=== PATIENT | male | born 1995 | race Caucasian/White ===

== ENCOUNTER 2017-12-24 15:56 | Emergency (ER) | payer OTHER ==
[~2017-12-24] VITALS: Ht 177.8 cm; Wt 65.8 kg
[~2017-12-24 15:56] MED LIST: ACETAMINOPHEN-1 EAC1 PO; BACTRIM DS TAB1 EACH PO; IBUPROFEN 800800 MG PO; LIDOCAINE VISC100 M1 MM; LIDOCAINE VISC100 M1 SWISH&SPIT; NAPROSYN500 MG PO; NOHOMEMEDICATIONS; PENICILLIN V P500 MG PO; ULTRAM 50MG TAB50 MG PO
[2017-12-24 16:46] LABS: HEMOGLOBIN 15.6 gm/dL (14.0-18.0); MCHC 33.9 g/dL (28.0-37.0); MCV 94.3 fL (80.0-100.0); MPV 8.5 fl. (7.2-11.1); RBC 4.88 mil/uL (4.50-6.00); RDW-CV 13.1 % (10.5-14.5); WBC 12.3 thou/uL (4.0-11.0)
[2017-12-24 16:55] LABS: CALCIUM 8.7 mg/dL (8.5-10.1); POTASSIUM 3.6 mmol/L (3.5-5.1)
[2017-12-24 17:00] LABS: TOTAL BILIRUBIN 0.6 mg/dL (<0.1-1.0); TOTAL PROTEIN 6.8 g/dL (6.4-8.2)
[2017-12-24 17:07] LABS: URINE BILIRUBIN NEGATIVE (Negative); URINE BLOOD NEGATIVE (Negative); URINE CLARITY CLEAR; URINE COLOR YELLOW; URINE GLUCOSE-RANDOM NEGATIVE (Negative); URINE KETONES NEGATIVE (Negative); URINE LEUKOCYTES NEGATIVE (Negative); URINE NITRITE NEGATIVE (Negative); URINE PROTEIN TRACE (Negative); URINE UROBILINOGEN 0.2 E.U./dl (0.2-1.0)
[2017-12-24 17:14] LABS: AMP/METHAMP POSITIVE (Negative); BARBITURATES Negative (Negative); BENZODIAZEPINES POSITIVE (Negative); COCAINE Negative (Negative); METHADONE Negative (Negative); OPIATES Negative (Negative); PCP Negative (Negative); THC POSITIVE (Negative)
[2017-12-24 17:14] LABS: ALCOHOL < 10 mg/dL (<10); SALICYLATE 3.3 mg/dL (2.8-20.0)
[2017-12-24 17:15] LABS: ACETAMINOPHEN < 2 ug/mL (10-30)
[2017-12-24 23:45] VITALS: BP 126/79
== END 2017-12-24 23:45 ==
LOC: M.ERS 15:56
PROVIDERS: Personal Emergency Response Attendant
DX: R45.851 Suicidal ideations (principal); F19.10 Other psychoactive substance abuse, uncomplicated; F32.9 Major depressive disorder, single episode, unspecified

== ENCOUNTER 2018-11-02 10:01 | Emergency (ER) | payer OTHER ==
[~2018-11-02] VITALS: Ht 177.8 cm; Wt 79.4 kg
[2018-11-02 10:49] LABS: ABSOLUTE BASOPHILS 0.1 thou/uL (0.0-0.2); ABSOLUTE LYMPHOCYTES 1.8 thou/uL (0.8-5.3); ABSOLUTE MONOCYTES 0.6 thou/uL (0.0-1.2); ABSOLUTE NEUTROPHILS 9.4 thou/uL (1.6-8.1); BASOPHILS 0.7 %; EOSINOPHILS 0.3 %; HEMATOCRIT 45.9 % (42.0-52.0); HEMOGLOBIN 15.9 gm/dL (14.0-18.0); LYMPHOCYTES 15.1 %; MCH 32.8 pg (26.0-34.0); MCHC 34.6 g/dL (28.0-37.0); MCV 94.7 fL (80.0-100.0); MONOCYTES 4.8 %; MPV 8.7 fl. (7.2-11.1); NUCLEATED RBCS 0 /100WBC; PLATELET COUNT* 220 thou/uL (150-400); POLYS 79.1 %; RBC 4.85 mil/uL (4.50-6.00); RDW-CV 13.4 % (10.5-14.5); WBC 11.9 thou/uL (4.0-11.0)
[2018-11-02 10:58] LABS: CALCIUM 9.1 mg/dL (8.5-10.1); CREATININE 0.8 mg/dL (0.6-1.3); POTASSIUM 3.8 mmol/L (3.5-5.1)
[2018-11-02 11:01] LABS: ALBUMIN 4.2 g/dL (3.4-5.0); TOTAL BILIRUBIN 0.4 mg/dL (<0.1-1.0); TOTAL PROTEIN 7.4 g/dL (6.4-8.2)
[2018-11-02] MEDS ORDERED: CARAFATE 1 GM TA1 G1 PO (11:11)
[2018-11-02] MEDS ORDERED: OMEPRAZOLE 20 M20 M1 PO (11:11)
[2018-11-02 11:31] VITALS: BP 144/83
== END 2018-11-02 11:33 | disposition home or self-care (01) ==
LOC: M.ERS 10:01
PROVIDERS: Nurse Practitioner Family
DX: K29.70 Gastritis, unspecified, without bleeding (principal); F17.200 Nicotine dependence, unspecified, uncomplicated

== ENCOUNTER 2020-04-09 22:35 | Emergency (ER) | payer OTHER ==
[~2020-04-09] VITALS: Ht 177.8 cm; Wt 61.2 kg
[~2020-04-09 22:35] MED LIST changes: +CARAFATE 1 GM TA1 G1 PO; +OMEPRAZOLE 20 M20 M1 PO
[2020-04-09 23:18] LABS: HEMATOCRIT 44.6 % (42.0-52.0); MCH 31.8 pg (26.0-34.0); MCHC 33.7 g/dL (28.0-37.0); MCV 94.4 fL (80.0-100.0); MPV 8.3 fl. (7.2-11.1); RBC 4.73 mil/uL (4.50-6.00); WBC 11.8 thou/uL (4.0-11.0)
[2020-04-09 23:26] LABS: CALCIUM 9.4 mg/dL (8.5-10.1); POTASSIUM 4.3 mmol/L (3.5-5.1)
[2020-04-09 23:30] LABS: ALBUMIN 3.7 g/dL (3.4-5.0); TOTAL BILIRUBIN 0.2 mg/dL (<0.1-1.0); TOTAL PROTEIN 6.7 g/dL (6.4-8.2)
[2020-04-09 23:33] LABS: ALCOHOL < 10 mg/dL (<10); SALICYLATE 3.9 mg/dL (2.8-20.0)
[2020-04-09 23:36] LABS: ACETAMINOPHEN < 2 ug/mL (10-30)
[2020-04-10 00:32] LABS: APTT 27.7 Seconds (25.0-31.3); INR 0.9; PROTIME 10.1 Seconds (9.20-11.50)
[2020-04-10 01:03] LABS: URINE BILIRUBIN NEGATIVE (Negative); URINE BLOOD NEGATIVE (Negative); URINE CLARITY CLEAR; URINE COLOR YELLOW; URINE GLUCOSE-RANDOM NEGATIVE (Negative); URINE KETONES NEGATIVE (Negative); URINE LEUKOCYTES NEGATIVE (Negative); URINE NITRITE NEGATIVE (Negative); URINE PROTEIN NEGATIVE (Negative); URINE SPECIFIC GRAVITY 1.015 (1.005-1.030)
[2020-04-10 01:14] LABS: AMP/METHAMP Negative (Negative); BARBITURATES Negative (Negative); BENZODIAZEPINES Negative (Negative); COCAINE Negative (Negative); METHADONE Negative (Negative); OPIATES Negative (Negative); PCP Negative (Negative); THC POSITIVE (Negative)
[2020-04-10 01:44] VITALS: BP 138/89
--- NOTE | 2020-04-10 09:34 | EKG ---
[place] [address] ELECTROCARDIOGRAM REPORT Name: YAO FERRARA Room: [facility]#: [id number] Admission: 04/09/20 Attend Phys: Discharge: 04/10/20 Date of : 89 Date of Service: 04/09/205 Report #: [id number] THIS REPORT FOR: //name// [facility] ED Test Date: 2020-04-09 Test Time: 23:25:51 Pat Name: YAO FERRARA Department: Room: Gender: Market President: ABRAHAM : 1995 Requested By: Zuleyma An Order Number: [id number] MD: Patricio Davies Measurements Intervals [place] Rate: 69 P: 19 [place]: 129 QRS: 35 QRSD: 101 T: 70 QT: 409 QTc: 438 Interpretive Statements Sinus rhythm RSR' in V1 or V2, probably normal variant Compared to ECG 12/14/2005 04:55:48 RSR' in V1 or V2 now present Sinus bradycardia no longer present Sinus arrhythmia no longer present Left ventricular hypertrophy no longer present Electronically Signed On 04-10-2020 9:34:17 STOCK RECEIVER by Patricio Davies [email or web address] <ELECTRONICALLY SIGNED> By: Patricio Davies MD, [facility] 04/10/20 0934 2325 2325 Patricio Davies MD, [facility] /EPI
== END 2020-04-10 01:47 | disposition short-term general hospital (02) ==
LOC: M.ERS 22:35
PROVIDERS: Personal Emergency Response Attendant
DX: S09.91XA Unspecified injury of ear, initial encounter (principal); S09.90XA Unspecified injury of head, initial encounter; R41.82 Altered mental status, unspecified; G40.909 Epilepsy, unspecified, not intractable, without status epilepticus; Z86.14 Personal history of Methicillin resistant Staphylococcus aureus infection; X58.XXXA Exposure to other specified factors, initial encounter; Y93.89 Activity, other specified; Y92.89 Other specified places as the place of occurrence of the external cause; Y99.8 Other external cause status